=== PATIENT | female | born 1950 | race Caucasian/White ===

== ENCOUNTER 2020-04-03 11:07 | Emergency (ER) | payer SELFPAY ==
[~2020-04-03] VITALS: Ht 177.8 cm; Wt 87.1 kg
[2020-04-03 11:54] LABS: BASOPHILS ABSOLUTE AUTO 0.07 K/mm3 (0.00-0.23); BASOPHILS PERCENT AUTO 1 % (0-2); EOSINOPHILS ABSOLUTE AUTO 0.19 K/mm3 (0.00-0.68); EOSINOPHILS PERCENT AUTO 2 % (0-6); Hematocrit 44.5 % (33.0-51.0); Hemoglobin 13.7 g/dL (11.5-16.0); IMMATURE GRAN ABSOLUTE AUTO 0.05 K/mm3 (0.00-0.10); IMMATURE GRAN PERCENT AUTO 1 % (0-1); LYMPHOCYTES ABSOLUTE AUTO 1.47 K/mm3 (0.84-5.20); LYMPHOCYTES PERCENT AUTO 15 % (21-46); MONOCYTES ABSOLUTE AUTO 0.85 K/mm3 (0.16-1.47); MONOCYTES PERCENT AUTO 8 % (4-13); Mean Corpuscular HGB 27.9 pg (26.0-34.0); Mean Corpuscular HGB Conc 30.8 g/dL (31.5-36.5); Mean Corpuscular Volume 91 fL (80-100); Mean Platelet Volume 9.5 fL (9.1-12.4); NEUTROPHILS ABSOLUTE AUTO 7.54 K/mm3 (1.96-9.15); NEUTROPHILS PERCENT AUTO 74 % (41-73); Platelet Count 280 K/mm3 (150-400); RDW Coefficient Variation 12.8 % (11.7-14.2); RDW Standard Deviation 42.4 fL (35.1-46.3); Red Blood Cell Count 4.91 M/mm3 (3.80-5.20); White Blood Cell Count 10.17 K/mm3 (4.00-11.30)
[2020-04-03 12:00] LABS: Source, Urine Clean Catch
[2020-04-03 12:05] LABS: Appearance, Urine Clear (Clear); Bilirubin, Urine Neg (Neg); Blood, Urine 2+ (Neg); Color, Urine Yellow (P-Yellow); Glucose Qualitative, Urine Neg (Neg); Ketones, Urine 4+ (Neg); Leukocyte Esterase, Urine 1+ (Neg); Nitrite, Urine Neg (Neg); Protein, Urine 2+ (Neg); Urobilinogen, Urine NORM (Normal)
[2020-04-03 12:05] LABS: Alanine Aminotransfer (ALT/SGP 12 U/L (12-78); Albumin, Blood 3.5 g/dL (3.4-5.0); Albumin/Globulin Ratio 0.8 (0.8-1.8); Alk Phos 90 U/L (50-136); Anion Gap 7 mmol/L (6-16); Aspartate Aminotrans (AST/SGOT 14 U/L (12-37); Bilirubin, Total 0.4 mg/dL (0.1-1.0); Blood Urea Nitrogen 11 mg/dL (8-24); CO2, Blood 25 mmol/L (21-32); Calcium, Blood 9.7 mg/dL (8.5-10.1); Chloride, Blood 103 mmol/L (98-108); Creatinine, Blood 0.79 mg/dL (0.40-1.00); Globulin, Blood 4.4 g/dL (2.2-4.0); Glomerular Filtration Rate >60 (60-); Glucose, Blood 101 mg/dL (70-99); Potassium, Blood 4.3 mmol/L (3.5-5.5); Sodium, Blood 135 mmol/L (136-145); Total Protein, Blood 7.9 g/dL (6.4-8.2)
[2020-04-03 12:10] LABS: International Normalized Ratio 1.07; Prothrombin Time Results 11.4 Sec (9.7-11.5)
[2020-04-03 12:13] LABS: Bacteria Few /hpf; Mucus Mod (0-Heavy); Squamous Epithelial Cells Few /hpf (Few)
== END 2020-04-03 16:49 | disposition home or self-care (01) ==
LOC: ER 11:07
PROVIDERS: Physician Assistant
DX: C78.6 Secondary malignant neoplasm of retroperitoneum and peritoneum (principal); M79.671 Pain in right foot; R18.8 Other ascites
CPT/HCPCS: 36415; 49083; 74177; 80053; 81001; 85025; 85610; 85730; 86304; 87086; 93926; 99284-25; Q9967

== ENCOUNTER 2020-04-07 08:27 | Emergency (ER) | payer SELFPAY ==
[~2020-04-07] VITALS: Ht 160 cm; Wt 72.6 kg
--- NOTE | 2020-04-07 09:38 | NUR ---
Patient's spouse, Hardy, arrives in ER waiting . I walk him back to ER consult where I inform him of the of his spouse. Hardy states that he knew this would be the news, he had no medical questions about patient's and that he had been doing all he could over the last week to keep her alive. Patient is a [employer] as well as Hardy and they have a strong belief that she is in heaven and is no longer suffering. I provide grief support and prayer. After asking Hardy about homes he states that he needs to call family and make them aware of patient's expiration and ask about homes. I show patient where to go when he is done with calls to inform about home then I give Hardy privacy to make calls. I will continue to remain available to patient and family.
--- NOTE | 2020-04-07 09:48 | NUR ---
Pt cahrt reviwed and AD reviewed with physician. Pt poor response to recussiation efforts. chaplian called to support and family when they arrived.
== END 2020-04-07 09:32 ==
LOC: ER 08:27
DX: I46.9 Cardiac arrest, cause unspecified (principal)
CPT/HCPCS: 31500; 31720; 92950; 93005; 93010; 96374-59; 96375-59; 99285-25; J0282; J0461; J3475